=== PATIENT | male | born 2000 | race Caucasian/White ===

== ENCOUNTER 2023-06-25 10:44 | Inpatient (IN) | payer OTHER ==
[2023-06-25] VITALS (7 sets, daily range): BP systolic 122–131; BP diastolic 75–81; PULSE 151–186; RESP 18–44; TEMP 97.9–101.5; O2SAT 94–100
[~2023-06-25] VITALS: Ht 180.3 cm; Wt 107.1 kg
[2023-06-25] MEDS ORDERED: NACL 0.9% 2,000 ML IV SCH (11:00)
[2023-06-25] MEDS ORDERED: PIPERACILLIN/TAZOBACTAM 3.375 GM in DEXTROSE 5% 50 ML IV ONE (11:15)
[2023-06-25] MEDS ORDERED: fentaNYL citrate 0.05 MG/ML VIAL IVP ONE ×2 (11:55→13:35)
[2023-06-25] MEDS ORDERED: ACETAMINOPHEN 650 MG SUPP RC ONE ×2 (12:50→15:40)
[2023-06-25] MEDS ORDERED: PIPERACILLIN/TAZOBACTAM 3.375 GM VIAL IV ONE ×3 (12:55→23:44)
[2023-06-25 13:13] LABS: HEMATOCRIT 56.1 % (36-52); HEMOGLOBIN 16.6 g/dL (12.0-18.0); MEAN CORPUSCULAR HEMOGLOBIN 23 pg (27-31); MEAN CORPUSCULAR HGB CONC 30 g/dL (33-37); MEAN CORPUSCULAR VOLUME 76.3 fL (80-94); PLATELET COUNT (AUTO) 405 K/uL (140-450); RED BLOOD CELL COUNT(AUTO) 7.36 MIL/uL (4.20-6.10); RED CELL DISTRIBUTION WIDTH 17.9 % (11.6-13.7)
[2023-06-25 13:28] LABS: WHITE BLOOD COUNT (AUTO) 26.1 K/uL (4.8-10.8)
[2023-06-25 13:29] LABS: INR 1.33 (0.8-1.2); PARTIAL THROMBOPLASTIN TIME 37.5 secs (22-35.6); PROTHROMBIN TIME 13.8 secs (10.8-13.4)
[2023-06-25 13:30] LABS: ALBUMIN 3.5 g/dL (3.4-5.0); ANION GAP 19.6 (8-16); CALCIUM 9.9 mg/dL (8.5-10.1); CARBON DIOXIDE 29.1 mmol/L (21-32); CREATININE 1.1 mg/dL (0.6-1.3); POTASSIUM 5.7 mmol/L (3.5-5.1); TOTAL BILIRUBIN 0.7 mg/dL (0.0-1.0); TOTAL PROTEIN, SERUM 9.2 g/dL (6.4-8.2)
[2023-06-25 13:32] LABS: CREATINE KINASE, TOTAL 822 U/L (39-308)
[2023-06-25] MEDS ORDERED: NACL 0.9% 1,000 ML IV ONE (13:35)
[2023-06-25 13:51] LABS: BASOPHILS % (MANUAL) 0 % (0-2); BLASTS, MANUAL % 0 % (0-0); EOSINOPHILS % (MANUAL) 0 % (0-4); LYMPHOCYTES % (MANUAL) 4 % (20-46); METAMYELOCYTES % 0 % (0-0); MONOCYTES % (MANUAL) 10 % (5-12); MYELOCYTES % 0 % (0-0); OTHER CELLS,MANUAL % 0 (0-0); PROMYELOCYTES % 0 % (0-0)
[2023-06-25 13:52] LABS: ANISOCYTOSIS 1+; PLATELET ESTIMATE INCREASED
[2023-06-25 14:10] LABS: LACTIC ACID 5.5 mmol/L (0.4-2.0)
[2023-06-25 14:43] LABS: APPEARANCE,URINE CLEAR (CLEAR); BILIRUBIN,URINE 2+ (NEGATIVE); BLOOD, URINE 3+ (NEGATIVE); COLOR,URINE YELLOW (YELLOW); LEUKOCYTE ESTERASE ,URINE NEGATIVE (NEGATIVE); NITRITE, URINE NEGATIVE (NEGATIVE); PROTEIN,URINE 3+ (NEGATIVE); UGLUCOSE NEGATIVE (NEGATIVE)
[2023-06-25] MEDS ORDERED: metroNIDAZOLE 500 MG/NS PREMIX 100 ML IV ONE (14:45)
[2023-06-25 15:37] LABS: BACTERIA,URINE FEW /HPF (None Seen); ICTOTEST NEGATIVE (NEGATIVE); MUCUS,URINE None Seen /LPF (None Seen); RBC,URINE 11-20 (MOD) /HPF (0-5); SQUAMOUS EPITHELIAL CELL,UR 0-3 (FEW) /LPF (0-3 (FEW)); WBC,URINE 0-5 /HPF (0-5)
[2023-06-25 15:38] LABS: TRICHOMONAS,URINE None Seen /HPF (None Seen); WHITE BLOOD CELL CASTS,URINE None Seen /LPF (None Seen); YEAST,URINE None Seen /HPF (None Seen)
[2023-06-25] MEDS ORDERED: ONDANSETRON 4 MG/2 ML VIAL IVP PRN (16:00)
[2023-06-25] MEDS ORDERED: LACTATED RINGERS 1,000 ML IV SCH (17:40)
[2023-06-25] MEDS: DEXT 5% / NACL 0.45% 1,000 ML IV SCH ×2 (17:52→21:26)
[2023-06-25 18:18] LABS: BLOOD GAS BASE EXCESS -1.2 mmol/L (-2.0-2.0); BLOOD GAS HCO3 21.3 mmol/L (22-26); BLOOD GAS PCO2 30.2 mmHg (35-45); BLOOD GAS PH 7.466 (7.35-7.45); BLOOD GAS PO2 67.4 mmHg (75-100)
[2023-06-25 18:19] LABS: BLOOD GAS O2 SAT% 94.7 % (92.0-98.5)
[2023-06-25] MEDS ORDERED: PHENYLEPHRINE 10 MG/ML VIAL ONE (18:30)
[2023-06-25] MEDS ORDERED: HYDROmorphone PFS 2 MG/ML SYR ONE ×2 (18:30→19:50)
[2023-06-25] MEDS ORDERED: ROCURONIUM 50 MG/5 ML VIAL IV ONE ×3 (18:30→20:17)
[2023-06-25] MEDS ORDERED: ePHEDrine 50 MG/ML VIAL ONE ×2 (18:30→20:55)
[2023-06-25] MEDS ORDERED: SEVOFLURANE 250 ML BTL INH ONE (18:30)
[2023-06-25] MEDS: LACTATED RINGERS 1,000 ML IV SCH (18:50)
[2023-06-25] MEDS: PIPERACILLIN/TAZOBACTAM 3.375 GM in DEXTROSE 5% 50 ML IV SCH (18:52)
[2023-06-25] MEDS ORDERED: BUPIVACAINE-MPF 0.25% 30 ML VIAL INJ ONE (19:15)
[2023-06-25] MEDS ORDERED: LIDOCAINE/EPI MPF 1%1:200000 30 ML VIAL INJ ONE (19:15)
[2023-06-25] MEDS ORDERED: ceFAZolin 2,000 MG VIAL ONE (19:15)
[2023-06-25 19:31] LABS: MEAN CORPUSCULAR HEMOGLOBIN 22 pg (27-31)
[2023-06-25 19:47] LABS: ALBUMIN 2.3 g/dL (3.4-5.0); ANION GAP 13.4 (8-16); CALCIUM 7.7 mg/dL (8.5-10.1); CARBON DIOXIDE 27.2 mmol/L (21-32); CREATININE 1.1 mg/dL (0.6-1.3); POTASSIUM 3.6 mmol/L (3.5-5.1); TOTAL BILIRUBIN 0.6 mg/dL (0.0-1.0); TOTAL PROTEIN, SERUM 6.2 g/dL (6.4-8.2)
[2023-06-25] MEDS ORDERED: ACET-2619 PO (19:49)
[2023-06-25 20:06] LABS: BASOPHILS % (AUTO) 0.2 % (0.0-2.0); HEMATOCRIT 46.4 % (36-52); HEMOGLOBIN 13.7 g/dL (12.0-18.0); LYMPHOCYTES # (AUTO) 0.6 K/uL (2.0-11.5); LYMPHOCYTES % (AUTO) 3.5 % (20.5-51.1); MEAN CORPUSCULAR HGB CONC 30 g/dL (33-37); MONOCYTES # (AUTO) 1.2 K/uL (0.8-1.0); MONOCYTES % (AUTO) 7.5 % (1.7-9.3); NEUTROPHILS # (AUTO) 14.7 K/uL (1.8-7.7); NEUTROPHILS % (AUTO) 88.8 % (42.2-75.2); PLATELET COUNT (AUTO) 51 K/uL (140-450); RED BLOOD CELL COUNT(AUTO) 6.18 MIL/uL (4.20-6.10); RED CELL DISTRIBUTION WIDTH 17.4 % (11.6-13.7); WHITE BLOOD COUNT (AUTO) 16.6 K/uL (4.8-10.8)
[2023-06-25] MEDS: MORPHINE SULFATE 4 MG/ML SYR IVP PRN (21:57)
[2023-06-25] MEDS ORDERED: NACL 0.9% 1,000 ML IV SCH (23:15)
[2023-06-25] MEDS ORDERED: ACETAMINOPHEN 650 MG/20.3 ML UDC ONE (23:29)
[2023-06-26] VITALS (33 sets, daily range): BP systolic 103–143; BP diastolic 57–80; PULSE 136–187; RESP 18–36; TEMP 98.9–104.8; O2SAT 94–100
[2023-06-26] MEDS: PIPERACILLIN/TAZOBACTAM 3.375 GM in DEXTROSE 5% 50 ML IV SCH ×5 (00:02→23:57)
[2023-06-26] MEDS ORDERED: LACT1CAP8 GT (04:30)
[2023-06-26] MEDS ORDERED: KETOROLAC 30 MG/ML VIAL IVP ONE (04:50)
[2023-06-26] MEDS ORDERED: ACETAMINOPHEN 650 MG/20.3 ML UDC ONE (04:51)
[2023-06-26] MEDS ORDERED: KETOROLAC 15 MG/ML VIAL ONE (04:51)
[2023-06-26] MEDS ORDERED: [UNRECOGNIZED DRUG - CODE] PO (06:49)
[2023-06-26] MEDS ORDERED: MAGN400S60 PO (06:49)
[2023-06-26] MEDS ORDERED: METO25TE2 PO (06:49)
[2023-06-26] MEDS ORDERED: GLYC30DR3 OP (06:49)
[2023-06-26] MEDS ORDERED: DICY10CA2 PO (06:49)
[2023-06-26] MEDS ORDERED: CLON0.1T46 TD (06:49)
[2023-06-26] MEDS ORDERED: [UNRECOGNIZED DRUG - CODE] TP (06:49)
[2023-06-26] MEDS ORDERED: OMEP20EC11 PO (06:49)
[2023-06-26] MEDS ORDERED: CHOL100013 PO (06:49)
[2023-06-26] MEDS ORDERED: KEP500L PO (06:49)
[2023-06-26] MEDS ORDERED: ASPI-1205 PO (06:49)
[2023-06-26] MEDS ORDERED: ONDA-188 PO (06:49)
[2023-06-26] MEDS ORDERED: SELE200T15 PO (06:49)
[2023-06-26] MEDS ORDERED: MULT-2246 PO (06:49)
[2023-06-26] MEDS ORDERED: FERR324T11 PO (06:49)
[2023-06-26] MEDS ORDERED: PIPERACILLIN/TAZOBACTAM 3.375 GM VIAL IV ONE (06:59)
[2023-06-26 07:09] LABS: BASOPHILS % (AUTO) 0.2 % (0.0-2.0); HEMATOCRIT 41.2 % (36-52); HEMOGLOBIN 12.5 g/dL (12.0-18.0); LYMPHOCYTES # (AUTO) 0.9 K/uL (2.0-11.5); MEAN CORPUSCULAR HEMOGLOBIN 23 pg (27-31); MEAN CORPUSCULAR HGB CONC 30 g/dL (33-37); MEAN CORPUSCULAR VOLUME 74.7 fL (80-94); MONOCYTES # (AUTO) 1.6 K/uL (0.8-1.0); PLATELET COUNT (AUTO) 264 K/uL (140-450); RED BLOOD CELL COUNT(AUTO) 5.52 MIL/uL (4.20-6.10); RED CELL DISTRIBUTION WIDTH 17.3 % (11.6-13.7); WHITE BLOOD COUNT (AUTO) 12.4 K/uL (4.8-10.8)
[2023-06-26 07:31] LABS: ALBUMIN 2.1 g/dL (3.4-5.0); CALCIUM 7.5 mg/dL (8.5-10.1); CARBON DIOXIDE 25.6 mmol/L (21-32); CREATININE 0.8 mg/dL (0.6-1.3); POTASSIUM 3.6 mmol/L (3.5-5.1); TOTAL BILIRUBIN 0.7 mg/dL (0.0-1.0); TOTAL PROTEIN, SERUM 5.8 g/dL (6.4-8.2)
[2023-06-26] MEDS: LACTATED RINGERS 1,000 ML IV SCH (07:40)
[2023-06-26 08:37] LABS: LYMPHOCYTES % (AUTO) 7.2 % (20.5-51.1); MONOCYTES % (AUTO) 12.5 % (1.7-9.3); NEUTROPHILS % (AUTO) 80.1 % (42.2-75.2)
[2023-06-26] MEDS: PANTOPRAZOLE 40 MG INJ VIAL IVP SCH (08:47)
[2023-06-26 09:10] LABS: BLOOD GAS BASE EXCESS -1.8 mmol/L (-2.0-2.0); BLOOD GAS HCO3 19.7 mmol/L (22-26); BLOOD GAS O2 SAT% 98.6 % (92.0-98.5); BLOOD GAS PCO2 25.8 mmHg (35-45); BLOOD GAS PO2 114.7 mmHg (75-100)
[2023-06-26] MEDS: DEXT 5% / NACL 0.45% 1,000 ML IV SCH ×2 (12:00→19:21)
[2023-06-26] MEDS: ACETAMINOPHEN 325 MG TAB NG PRN (21:30)
[2023-06-27] VITALS (31 sets, daily range): BP systolic 109–136; BP diastolic 56–73; PULSE 98–146; RESP 15–25; TEMP 98.6–100.4; O2SAT 93–100
[2023-06-27] MEDS: DEXT 5% / NACL 0.45% 1,000 ML IV SCH (05:16)
[2023-06-27] MEDS: PIPERACILLIN/TAZOBACTAM 3.375 GM in DEXTROSE 5% 50 ML IV SCH ×3 (05:18→18:06)
[2023-06-27 06:06] LABS: BASOPHILS % (AUTO) 0.3 % (0.0-2.0); HEMATOCRIT 34.5 % (36-52); HEMOGLOBIN 10.4 g/dL (12.0-18.0); LYMPHOCYTES # (AUTO) 0.9 K/uL (2.0-11.5); LYMPHOCYTES % (AUTO) 7.1 % (20.5-51.1); MEAN CORPUSCULAR HEMOGLOBIN 22 pg (27-31); MEAN CORPUSCULAR HGB CONC 30 g/dL (33-37); MEAN CORPUSCULAR VOLUME 73.7 fL (80-94); MONOCYTES # (AUTO) 1.3 K/uL (0.8-1.0); MONOCYTES % (AUTO) 9.8 % (1.7-9.3); NEUTROPHILS # (AUTO) 10.6 K/uL (1.8-7.7); NEUTROPHILS % (AUTO) 82.8 % (42.2-75.2); PLATELET COUNT (AUTO) 214 K/uL (140-450); RED BLOOD CELL COUNT(AUTO) 4.68 MIL/uL (4.20-6.10); RED CELL DISTRIBUTION WIDTH 17.1 % (11.6-13.7); WHITE BLOOD COUNT (AUTO) 12.8 K/uL (4.8-10.8)
[2023-06-27 06:43] LABS: ALBUMIN 1.9 g/dL (3.4-5.0); ANION GAP 12.2 (8-16); CARBON DIOXIDE 26.9 mmol/L (21-32); CREATININE 0.6 mg/dL (0.6-1.3); POTASSIUM 3.1 mmol/L (3.5-5.1); TOTAL BILIRUBIN 0.5 mg/dL (0.0-1.0); TOTAL PROTEIN, SERUM 5.6 g/dL (6.4-8.2)
[2023-06-27] MEDS: ACETAMINOPHEN 325 MG TAB NG PRN ×2 (07:59→20:52)
[2023-06-27] MEDS: PANTOPRAZOLE 40 MG INJ VIAL IVP SCH (08:28)
[2023-06-27] MEDS: levETIRAcetam 1,000 MG in NACL 0.9% 100 ML IV SCH ×2 (08:44→17:06)
[2023-06-27] MEDS ORDERED: KCL 20 MEQ IN 100 mL PREMIX 200 ML IV SCH (10:30)
[2023-06-27] MEDS: METOPROLOL 25 MG TAB PO SCH ×2 (12:29→20:36)
[2023-06-27] MEDS: DEXTROSE 5% 1,000 ML IV SCH (14:40)
[2023-06-27] MEDS: MEROPENEM 1,000 MG in NACL 0.9% 50 ML IV SCH (20:35)
[2023-06-28] VITALS (20 sets, daily range): BP systolic 106–136; BP diastolic 56–74; PULSE 87–126; RESP 16–34; TEMP 98.1–100.8; O2SAT 90–100
[2023-06-28] MEDS: DEXTROSE 5% 1,000 ML IV SCH ×2 (02:52→13:15)
[2023-06-28] MEDS: MEROPENEM 1,000 MG in NACL 0.9% 50 ML IV SCH ×3 (04:44→20:33)
[2023-06-28 05:42] LABS: BASOPHILS % (AUTO) 0.2 % (0.0-2.0); EOSINOPHILS % (AUTO) 0.2 % (0.0-4.0); HEMOGLOBIN 9.1 g/dL (12.0-18.0); MEAN CORPUSCULAR HEMOGLOBIN 22 pg (27-31); MEAN CORPUSCULAR HGB CONC 30 g/dL (33-37); MEAN CORPUSCULAR VOLUME 73.8 fL (80-94); MONOCYTES # (AUTO) 0.7 K/uL (0.8-1.0); MONOCYTES % (AUTO) 5.8 % (1.7-9.3); NEUTROPHILS # (AUTO) 10.5 K/uL (1.8-7.7); NEUTROPHILS % (AUTO) 85.8 % (42.2-75.2); PLATELET COUNT (AUTO) 174 K/uL (140-450); RED BLOOD CELL COUNT(AUTO) 4.06 MIL/uL (4.20-6.10); RED CELL DISTRIBUTION WIDTH 17.4 % (11.6-13.7); WHITE BLOOD COUNT (AUTO) 12.3 K/uL (4.8-10.8)
[2023-06-28 06:28] LABS: ALBUMIN 1.9 g/dL (3.4-5.0); ANION GAP 12.2 (8-16); CALCIUM 8.1 mg/dL (8.5-10.1); CARBON DIOXIDE 28.1 mmol/L (21-32); CREATININE 0.4 mg/dL (0.6-1.3); POTASSIUM 3.3 mmol/L (3.5-5.1); TOTAL BILIRUBIN 0.6 mg/dL (0.0-1.0); TOTAL PROTEIN, SERUM 5.7 g/dL (6.4-8.2)
[2023-06-28] MEDS ORDERED: POTASSIUM CHLORIDE 10 MEQ TABER PO PRN (08:50)
[2023-06-28] MEDS: levETIRAcetam 1,000 MG in NACL 0.9% 100 ML IV SCH ×2 (08:57→21:19)
[2023-06-28] MEDS: PANTOPRAZOLE 40 MG INJ VIAL IVP SCH (09:52)
[2023-06-28] MEDS: METOPROLOL 25 MG TAB PO SCH ×2 (09:53→21:06)
[2023-06-28] MEDS: POTASSIUM CHLORIDE 20% 40 MEQ/15 ML UDC GT PRN (13:14)
[2023-06-28] MEDS: ACETAMINOPHEN 325 MG TAB NG PRN (15:40)
[2023-06-29] VITALS (15 sets, daily range): BP systolic 113–122; BP diastolic 49–70; PULSE 95–124; RESP 18–32; TEMP 98.6–100.6; O2SAT 93–100
[2023-06-29] MEDS: DEXT 5% / NACL 0.45% 1,000 ML IV SCH ×2 (01:38→10:32)
[2023-06-29] MEDS: MEROPENEM 1,000 MG in NACL 0.9% 50 ML IV SCH ×3 (04:57→20:49)
[2023-06-29 05:47] LABS: BASOPHILS # (AUTO) 0.1 K/uL (0.00-0.22); EOSINOPHILS # (AUTO) 0.1 K/uL (0-0.4); EOSINOPHILS % (AUTO) 0.8 % (0.0-4.0); HEMATOCRIT 29.7 % (36-52); HEMOGLOBIN 9.1 g/dL (12.0-18.0); LYMPHOCYTES # (AUTO) 0.9 K/uL (2.0-11.5); LYMPHOCYTES % (AUTO) 7.9 % (20.5-51.1); MEAN CORPUSCULAR HEMOGLOBIN 22 pg (27-31); MEAN CORPUSCULAR HGB CONC 31 g/dL (33-37); MEAN CORPUSCULAR VOLUME 73.2 fL (80-94); MONOCYTES # (AUTO) 0.9 K/uL (0.8-1.0); MONOCYTES % (AUTO) 7.5 % (1.7-9.3); NEUTROPHILS # (AUTO) 9.6 K/uL (1.8-7.7); NEUTROPHILS % (AUTO) 82.8 % (42.2-75.2); PLATELET COUNT (AUTO) 198 K/uL (140-450); RED BLOOD CELL COUNT(AUTO) 4.05 MIL/uL (4.20-6.10); RED CELL DISTRIBUTION WIDTH 17.3 % (11.6-13.7); WHITE BLOOD COUNT (AUTO) 11.6 K/uL (4.8-10.8)
[2023-06-29 06:03] LABS: ALBUMIN 2.1 g/dL (3.4-5.0); CALCIUM 8.2 mg/dL (8.5-10.1); CARBON DIOXIDE 30.2 mmol/L (21-32); CREATININE 0.4 mg/dL (0.6-1.3); POTASSIUM 3.2 mmol/L (3.5-5.1); TOTAL BILIRUBIN 0.9 mg/dL (0.0-1.0); TOTAL PROTEIN, SERUM 6.2 g/dL (6.4-8.2)
[2023-06-29] MEDS: PANTOPRAZOLE 40 MG INJ VIAL IVP SCH (09:10)
[2023-06-29] MEDS: METOPROLOL 25 MG TAB PO SCH ×2 (10:05→20:55)
[2023-06-29] MEDS: levETIRAcetam 1,000 MG in NACL 0.9% 100 ML IV SCH ×2 (10:28→21:23)
[2023-06-29] MEDS: POTASSIUM CHLORIDE 20% 40 MEQ/15 ML UDC GT PRN (10:52)
[2023-06-29] MEDS: NACL 0.9% 1,000 ML IV SCH (13:35)
[2023-06-30] VITALS (16 sets, daily range): BP systolic 102–124; BP diastolic 53–62; PULSE 73–117; RESP 18–27; TEMP 97–98.7; O2SAT 94–100
[2023-06-30] MEDS: NACL 0.9% 1,000 ML IV SCH ×3 (02:55→16:15)
[2023-06-30] MEDS: MEROPENEM 1,000 MG in NACL 0.9% 50 ML IV SCH ×3 (04:52→20:35)
[2023-06-30 05:40] LABS: BASOPHILS # (AUTO) 0.1 K/uL (0.00-0.22); BASOPHILS % (AUTO) 0.5 % (0.0-2.0); EOSINOPHILS # (AUTO) 0.1 K/uL (0-0.4); EOSINOPHILS % (AUTO) 1.1 % (0.0-4.0); HEMATOCRIT 29.3 % (36-52); HEMOGLOBIN 8.8 g/dL (12.0-18.0); LYMPHOCYTES # (AUTO) 0.9 K/uL (2.0-11.5); LYMPHOCYTES % (AUTO) 6.8 % (20.5-51.1); MEAN CORPUSCULAR HEMOGLOBIN 22 pg (27-31); MEAN CORPUSCULAR HGB CONC 30 g/dL (33-37); MEAN CORPUSCULAR VOLUME 73.8 fL (80-94); MONOCYTES % (AUTO) 8.3 % (1.7-9.3); NEUTROPHILS # (AUTO) 10.4 K/uL (1.8-7.7); NEUTROPHILS % (AUTO) 83.3 % (42.2-75.2); PLATELET COUNT (AUTO) 221 K/uL (140-450); RED BLOOD CELL COUNT(AUTO) 3.97 MIL/uL (4.20-6.10); RED CELL DISTRIBUTION WIDTH 17.1 % (11.6-13.7); WHITE BLOOD COUNT (AUTO) 12.5 K/uL (4.8-10.8)
[2023-06-30 06:17] LABS: ALBUMIN 1.9 g/dL (3.4-5.0); ANION GAP 12.4 (8-16); CALCIUM 8.1 mg/dL (8.5-10.1); CARBON DIOXIDE 27.1 mmol/L (21-32); CREATININE 0.3 mg/dL (0.6-1.3); POTASSIUM 3.5 mmol/L (3.5-5.1); TOTAL BILIRUBIN 0.7 mg/dL (0.0-1.0)
[2023-06-30] MEDS: METOPROLOL 25 MG TAB PO SCH ×2 (08:50→20:39)
[2023-06-30] MEDS: PANTOPRAZOLE 40 MG INJ VIAL IVP SCH (08:53)
[2023-06-30] MEDS: levETIRAcetam 1,000 MG in NACL 0.9% 100 ML IV SCH ×2 (09:09→20:51)
[2023-06-30] MEDS ORDERED: Z-GUARD PASTE TP ONE (17:14)
[2023-07-01] VITALS (15 sets, daily range): BP systolic 98–116; BP diastolic 51–70; PULSE 102–132; RESP 17–20; TEMP 96.9–98.8; O2SAT 94–100
[2023-07-01] MEDS: MEROPENEM 1,000 MG in NACL 0.9% 50 ML IV SCH ×3 (04:53→21:00)
[2023-07-01] MEDS: NACL 0.9% 1,000 ML IV SCH ×2 (05:37→20:59)
[2023-07-01] MEDS: METOPROLOL 25 MG TAB PO SCH ×2 (09:00→21:05)
[2023-07-01] MEDS: levETIRAcetam 1,000 MG in NACL 0.9% 100 ML IV SCH ×2 (09:27→21:33)
[2023-07-01] MEDS: PANTOPRAZOLE 40 MG INJ VIAL IVP SCH (09:27)
[2023-07-01] MEDS: ACETAMINOPHEN 325 MG TAB NG PRN (21:47)
[2023-07-02] VITALS (16 sets, daily range): BP systolic 103–121; BP diastolic 59–76; PULSE 88–121; RESP 18–22; TEMP 96.7–97.8; O2SAT 92–100
[2023-07-02] MEDS: MEROPENEM 1,000 MG in NACL 0.9% 50 ML IV SCH ×3 (05:03→20:05)
[2023-07-02 07:34] LABS: BASOPHILS # (AUTO) 0.1 K/uL (0.00-0.22); BASOPHILS % (AUTO) 0.5 % (0.0-2.0); EOSINOPHILS # (AUTO) 0.1 K/uL (0-0.4); EOSINOPHILS % (AUTO) 1.2 % (0.0-4.0); HEMATOCRIT 31.1 % (36-52); HEMOGLOBIN 9.6 g/dL (12.0-18.0); LYMPHOCYTES # (AUTO) 0.6 K/uL (2.0-11.5); LYMPHOCYTES % (AUTO) 6.4 % (20.5-51.1); MEAN CORPUSCULAR HEMOGLOBIN 23 pg (27-31); MEAN CORPUSCULAR HGB CONC 31 g/dL (33-37); MEAN CORPUSCULAR VOLUME 73.7 fL (80-94); MONOCYTES # (AUTO) 1.6 K/uL (0.8-1.0); NEUTROPHILS # (AUTO) 7.3 K/uL (1.8-7.7); NEUTROPHILS % (AUTO) 75.9 % (42.2-75.2); PLATELET COUNT (AUTO) 339 K/uL (140-450); RED BLOOD CELL COUNT(AUTO) 4.22 MIL/uL (4.20-6.10); RED CELL DISTRIBUTION WIDTH 17.9 % (11.6-13.7); WHITE BLOOD COUNT (AUTO) 9.7 K/uL (4.8-10.8)
[2023-07-02 08:01] LABS: ALBUMIN 2.1 g/dL (3.4-5.0); ANION GAP 12.9 (8-16); CALCIUM 8.6 mg/dL (8.5-10.1); CARBON DIOXIDE 27.7 mmol/L (21-32); CREATININE 0.4 mg/dL (0.6-1.3); POTASSIUM 3.6 mmol/L (3.5-5.1); TOTAL BILIRUBIN 0.7 mg/dL (0.0-1.0); TOTAL PROTEIN, SERUM 6.5 g/dL (6.4-8.2)
[2023-07-02] MEDS: METOPROLOL 25 MG TAB PO SCH ×2 (08:59→20:05)
[2023-07-02] MEDS: PANTOPRAZOLE 40 MG INJ VIAL IVP SCH (08:59)
[2023-07-02] MEDS: NACL 0.9% 1,000 ML IV SCH (09:01)
[2023-07-02] MEDS: levETIRAcetam 1,000 MG in NACL 0.9% 100 ML IV SCH (09:01)
[2023-07-02] MEDS ORDERED: METO25TA PO (10:27)
[2023-07-02] MEDS ORDERED: MERO1PIG IV (10:27)
[2023-07-02] MEDS ORDERED: ASPI-1822 PO (10:27)
[2023-07-02] MEDS: levETIRAcetam 100 MG/ML ORASYR GT SCH (20:05)
[2023-07-02] MEDS: FAMOTIDINE 20 MG TAB PO SCH (20:06)
[2023-07-03] VITALS (14 sets, daily range): BP systolic 101–112; BP diastolic 54–68; PULSE 103–122; RESP 18–22; TEMP 96.2–98.2; O2SAT 92–97
[2023-07-03] MEDS: MEROPENEM 1,000 MG in NACL 0.9% 50 ML IV SCH ×3 (04:29→20:39)
[2023-07-03] MEDS: METOPROLOL 25 MG TAB PO SCH ×2 (09:47→20:39)
[2023-07-03] MEDS: levETIRAcetam 100 MG/ML ORASYR GT SCH ×2 (09:47→20:41)
[2023-07-03] MEDS: FAMOTIDINE 20 MG TAB PO SCH ×2 (09:48→20:42)
[2023-07-04] VITALS (16 sets, daily range): BP systolic 100–135; BP diastolic 63–71; PULSE 99–145; RESP 17–22; TEMP 97.3–98.7; O2SAT 92–100
[2023-07-04] MEDS: MEROPENEM 1,000 MG in NACL 0.9% 50 ML IV SCH ×3 (04:30→21:30)
[2023-07-04] MEDS: FAMOTIDINE 20 MG TAB PO SCH ×2 (09:56→21:32)
[2023-07-04] MEDS: METOPROLOL 25 MG TAB PO SCH ×2 (09:56→21:32)
[2023-07-04] MEDS: levETIRAcetam 100 MG/ML ORASYR GT SCH ×2 (09:56→21:30)
[2023-07-04] MEDS: MORPHINE SULFATE 4 MG/ML SYR IVP PRN (14:38)
[2023-07-05] VITALS (17 sets, daily range): BP systolic 101–114; BP diastolic 54–67; PULSE 88–138; RESP 17–22; TEMP 96.8–99.1; O2SAT 94–100
[2023-07-05] MEDS: MEROPENEM 1,000 MG in NACL 0.9% 50 ML IV SCH (04:37)
[2023-07-05 08:08] LABS: BASOPHILS # (AUTO) 0.1 K/uL (0.00-0.22); BASOPHILS % (AUTO) 0.6 % (0.0-2.0); EOSINOPHILS # (AUTO) 0.1 K/uL (0-0.4); EOSINOPHILS % (AUTO) 0.7 % (0.0-4.0); HEMATOCRIT 30.6 % (36-52); HEMOGLOBIN 9.4 g/dL (12.0-18.0); LYMPHOCYTES # (AUTO) 0.7 K/uL (2.0-11.5); LYMPHOCYTES % (AUTO) 8.1 % (20.5-51.1); MEAN CORPUSCULAR HEMOGLOBIN 22 pg (27-31); MEAN CORPUSCULAR HGB CONC 31 g/dL (33-37); MEAN CORPUSCULAR VOLUME 73.3 fL (80-94); MONOCYTES # (AUTO) 0.6 K/uL (0.8-1.0); MONOCYTES % (AUTO) 7.9 % (1.7-9.3); NEUTROPHILS # (AUTO) 6.6 K/uL (1.8-7.7); NEUTROPHILS % (AUTO) 82.7 % (42.2-75.2); PLATELET COUNT (AUTO) 450 K/uL (140-450); RED BLOOD CELL COUNT(AUTO) 4.18 MIL/uL (4.20-6.10); RED CELL DISTRIBUTION WIDTH 17.9 % (11.6-13.7)
[2023-07-05 09:56] LABS: ANION GAP 13.8 (8-16); CARBON DIOXIDE 28.4 mmol/L (21-32); CREATININE 0.4 mg/dL (0.6-1.3); POTASSIUM 4.2 mmol/L (3.5-5.1)
[2023-07-05] MEDS: levETIRAcetam 100 MG/ML ORASYR GT SCH ×2 (11:04→20:08)
[2023-07-05] MEDS: METOPROLOL 25 MG TAB PO SCH ×2 (11:05→20:08)
[2023-07-05] MEDS: FAMOTIDINE 20 MG TAB PO SCH ×2 (11:05→20:08)
[2023-07-06] VITALS (11 sets, daily range): BP systolic 103–118; BP diastolic 61–76; PULSE 88–115; RESP 16–20; TEMP 96.8–100.1; O2SAT 95–100
[2023-07-06] MEDS: METOPROLOL 25 MG TAB PO SCH ×3 (04:16→20:20)
[2023-07-06] MEDS: levETIRAcetam 100 MG/ML ORASYR GT SCH ×2 (11:27→20:20)
[2023-07-06] MEDS: FAMOTIDINE 20 MG TAB PO SCH ×2 (11:41→20:20)
[2023-07-06] MEDS ORDERED: ALGINATE ROPE MC PRN (12:45)
[2023-07-06] MEDS: ALGINATE ROPE MC SCH (13:00)
[2023-07-07] VITALS (15 sets, daily range): BP systolic 103–111; BP diastolic 59–73; PULSE 81–111; RESP 16–20; TEMP 97.2–98.6; O2SAT 95–99
[2023-07-07] MEDS: METOPROLOL 25 MG TAB PO SCH ×2 (05:09→12:11)
[2023-07-07 07:49] LABS: BASOPHILS % (AUTO) 0.6 % (0.0-2.0); EOSINOPHILS # (AUTO) 0.1 K/uL (0-0.4); EOSINOPHILS % (AUTO) 0.7 % (0.0-4.0); HEMATOCRIT 29.8 % (36-52); HEMOGLOBIN 9.1 g/dL (12.0-18.0); LYMPHOCYTES # (AUTO) 0.7 K/uL (2.0-11.5); LYMPHOCYTES % (AUTO) 9.3 % (20.5-51.1); MEAN CORPUSCULAR HEMOGLOBIN 23 pg (27-31); MEAN CORPUSCULAR HGB CONC 31 g/dL (33-37); MEAN CORPUSCULAR VOLUME 73.6 fL (80-94); MONOCYTES # (AUTO) 0.6 K/uL (0.8-1.0); MONOCYTES % (AUTO) 8.2 % (1.7-9.3); NEUTROPHILS # (AUTO) 5.9 K/uL (1.8-7.7); NEUTROPHILS % (AUTO) 81.2 % (42.2-75.2); PLATELET COUNT (AUTO) 486 K/uL (140-450); RED BLOOD CELL COUNT(AUTO) 4.05 MIL/uL (4.20-6.10); RED CELL DISTRIBUTION WIDTH 17.8 % (11.6-13.7); WHITE BLOOD COUNT (AUTO) 7.2 K/uL (4.8-10.8)
[2023-07-07 07:55] LABS: ANION GAP 13.9 (8-16); CALCIUM 9.3 mg/dL (8.5-10.1); CARBON DIOXIDE 28.3 mmol/L (21-32); CREATININE 0.4 mg/dL (0.6-1.3); POTASSIUM 4.2 mmol/L (3.5-5.1)
[2023-07-07] MEDS: levETIRAcetam 100 MG/ML ORASYR GT SCH (08:43)
[2023-07-07] MEDS: FAMOTIDINE 20 MG TAB PO SCH (08:43)
[2023-07-07] MEDS: ALGINATE ROPE MC SCH (10:58)
== END 2023-07-07 15:45 | DRG 710 ==
LOC: MED 10:44 → MIC 16:03 → MMU 16:03 → MIC 16:52 → MTU 06-30 06:20
PROVIDERS: ADMIT Student in an Organized Health Care Education/Training Program; ATTEND Student in an Organized Health Care Education/Training Program
PROC: 5A1955Z Respiratory Ventilation, Greater than 96 Consecutive Hours (ICD-10-PCS; 2023-06-25)
PROC: 02HV33Z Insertion of Infusion Device into Superior Vena Cava, Percutaneous Approach (ICD-10-PCS; 2023-06-25)
PROC: B548ZZA Ultrasonography of Superior Vena Cava, Guidance (ICD-10-PCS; 2023-06-25)
PROC: 0DN80ZZ Release Small Intestine, Open Approach (ICD-10-PCS; principal; 2023-06-25 18:30)
DX: A41.9 Sepsis, unspecified organism (principal); J80 Acute respiratory distress syndrome; N17.0 Acute kidney failure with tubular necrosis; J95.851 Ventilator associated pneumonia; G93.49 Other encephalopathy; K55.9 Vascular disorder of intestine, unspecified; K56.600 Partial intestinal obstruction, unspecified as to cause; H70.91 Unspecified mastoiditis, right ear; E86.1 Hypovolemia; B96.1 Klebsiella pneumoniae [K. pneumoniae] as the cause of diseases classified elsewhere; E87.0 Hyperosmolality and hypernatremia; Z20.822 Contact with and (suspected) exposure to COVID-19; G93.89 Other specified disorders of brain; R65.20 Severe sepsis without septic shock; K63.89 Other specified diseases of intestine; I10 Essential (primary) hypertension; N39.0 Urinary tract infection, site not specified; E66.9 Obesity, unspecified; G40.909 Epilepsy, unspecified, not intractable, without status epilepticus; Z93.1 Gastrostomy status; Z93.0 Tracheostomy status; Z74.01 Bed confinement status; Z68.32 Body mass index [BMI] 32.0-32.9, adult; Z99.11 Dependence on respirator [ventilator] status
CPT/HCPCS: 36415; 36556; 36600; 70450; 71045; 71250; 74018; 74022; 80048; 80053; 81001; 82550; 82553; 82803; 83605; 83880; 84484; 85025; 85610; 85730; 87040; 87070; 87086; 87205; 89220; 93005; 94003; 96361; 96365; 96367; 96375; 99291; 99292; C9113; J1170; J1644; J1885; J1953; J2001; J2185; J2270; J2370; J2543; J3010; J3480; J3490; J7060; Q0092

== ENCOUNTER 2023-07-28 11:17 | Emergency (ER) | payer OTHER ==
[~2023-07-28] VITALS: Ht 182.9 cm; Wt 86.2 kg
[~2023-07-28 11:17] MED LIST: ASPI-1205 PO; ASPI-1822 PO; CHOL100013 PO; DICY10CA2 PO; FERR324T11 PO; GLYC30DR3 OP; KEP500L PO; LACT1CAP8 GT; MAGN400S60 PO; MERO1PIG IV; METO25TA PO; OMEP20EC11 PO; ONDA-188 PO; SELE200T15 PO; [UNRECOGNIZED DRUG - CODE] PO; [UNRECOGNIZED DRUG - CODE] TP
[2023-07-28] MEDS: diphenhydrAMINE 50 MG/ML VIAL IVP ONE (11:25)
[2023-07-28] MEDS: methylPREDNISolone SS 125 MG/2 ML VIAL IVP ONE (11:30)
[2023-07-28 11:32] VITALS: BP 113/64; PULSE 114; RESP 14; O2SAT 98
[2023-07-28] MEDS ORDERED: PRED20TA5 GT (13:31)
[2023-07-28] MEDS ORDERED: DIPH25TA53 GT (13:31)
[2023-07-28 14:04] VITALS: BP 113/64; PULSE 114; RESP 14; O2SAT 98
== END 2023-07-28 14:06 ==
LOC: MED 11:17
DX: T78.49XA Other allergy, initial encounter (principal); J45.909 Unspecified asthma, uncomplicated; I10 Essential (primary) hypertension; Z86.73 Personal history of transient ischemic attack (TIA), and cerebral infarction without residual deficits; Z86.69 Personal history of other diseases of the nervous system and sense organs; Z98.890 Other specified postprocedural states; Z79.82 Long term (current) use of aspirin; Z79.899 Other long term (current) drug therapy; X58.XXXA Exposure to other specified factors, initial encounter
CPT/HCPCS: 81002; 96374; 96375; 99284; J1200; J2930